=== PATIENT | male | born 1945 | race Caucasian/White ===

== ENCOUNTER 2018-07-24 16:30 | Emergency (ER) | payer OTHER ==
--- NOTE | 2018-07-24 17:01 | RAD REPORT ---
EXAM DESCRIPTION: CT - Ct Stroke Brain Wo Cont - 07/24/2018 4:52 pm CLINICAL HISTORY: NUMBNESS Headache, drowsiness, CVA COMPARISON: <Comparisons> TECHNIQUE: All CT scans are performed using dose optimization technique as appropriate and may inclu de automated exposure control or mA/KV adjustment according to patient size. FINDINGS: No intracranial hemorrhage, hydrocephalus or extra-axial fluid collection.Mild generalized brain atrophy is present with mild periventricular and deep white matter chronic microvascular ische urvashi changes.No areas of brain edema or evidence of midline shift. Chronic right maxillary sinusitis suspected. The paranasal sinuses and mastoids are otherwise clear. The calvarium is intact. IMPRESSION: No acute intracranial abnormality. The findings were discussed with Dr. Sifuentes in the ER On 07/24/2018 at 4:50 p.m. by telephone.
[2018-07-24 17:12] LABS: Absolute Lymphocytes (CBC) 1.4 K/uL (0.7-4.9); Basophils % 0.4 % (0-1.3); Eosinophils % 5.3 % (0-4.4); Hematocrit 42.9 % (39.6-49.0); Lymphocytes % 24.8 % (15.3-44.8); MPV 9.3 fL (7.6-11.3); Monocytes % 13.6 % (3.3-12.3); RBC Red Blood Cell Count 4.35 M/uL (4.33-5.43)
[2018-07-24 17:18] LABS: Protime INR 1.07
--- NOTE | 2018-07-24 17:27 | RAD REPORT ---
EXAM DESCRIPTION: RAD - Chest Single View - 07/24/2018 5:12 pm CLINICAL HISTORY: NUMBNESS Chest pain. COMPARISON: <Comparisons> FINDINGS: Portable technique limits examination quality. The lungs are grossly clear. The heart is normal in size. No displaced fractures. IMPRESSION: No acute intrathoracic process suspected.
[2018-07-24 17:53] LABS: Barbiturates NEGATIVE (NEGATIVE); Benzodiazepines NEGATIVE (NEGATIVE); Cocaine NEGATIVE (NEGATIVE); METHAMPHETAM NEGATIVE (NEGATIVE); Methadone NEGATIVE (NEGATIVE); Opiates NEGATIVE (NEGATIVE); Phencyclidine NEGATIVE (NEGATIVE); THC Cannibis NEGATIVE (NEGATIVE)
[2018-07-24 17:58] LABS: Urine Blood NEGATIVE (NEG); Urine Glucose NEGATIVE (NEG); Urine Protein NEGATIVE (NEG); Urine Specific Gravity 1.015 (1.005-1.030)
[2018-07-24 18:27] LABS: BUN Blood Urea Nitrogen 25 mg/dL (7-18); Bicarbonate 29 mmol/L (21-32); Glucose Level 94 mg/dL (74-106); Sodium Level 138 mmol/L (136-145); Troponin (Emerg Dept Use Only) < 0.02 ng/mL (0.0-0.045)
--- NOTE | 2018-07-24 19:33 | RAD REPORT ---
EXAM DESCRIPTION: CT - Head angio - 07/24/2018 7:20 pm CLINICAL HISTORY: Weakness;Slurred speech Headache, drowsiness, CVA symptomology COMPARISON: Ct Stroke Brain Wo Cont dated 07/24/2018 TECHNIQUE: CT angiography of the head was performed with MIPs. All CT scans are performed using dose optimization technique as appropriate and may include automated exposure control or mA/KV adjustment according to patient size. FINDINGS: No evidence of aneurysm is detected. No flow-limiting stenosis or vascular malformation id entified. Antegrade flow is seen in the vertebral arteries. Forward flow is seen in both vertebral arteries, wi th left-sided dominant. The visualized dural venous sinuses are patent. IMPRESSION: No significant flow abnormality is detected.
--- NOTE | 2018-07-24 19:47 | ER ---
Nurse's Notes [facility] Name: Ankit Soares Age: 73 yrs Sex: Male : 1945 Arrival Date: 07/24/2018 Time: 16:32 Bed 6 Private MD: Diagnosis: Paresthesia of skin Presentation: 07/24 16:38 Presenting complaint: Patient states: TOTAL HEAD AND BLE NUMBNESS/TINGLING SINCE 1611. bp Transition of care: patient was not received from another setting of care. Onset of symptoms was July 24, 2018 at 16:12. Risk Assessment: Do you want to hurt yourself or someone else? Patient reports no desire to harm self or others. Initial Sepsis Screen: Does the patient meet any 2 criteria? No. Patient's initial sepsis screen is negative. Does the patient have a suspected source of infection? No. Patient's initial sepsis screen is negative. Care prior to arrival: None. 16:38 Method Of Arrival: Ambulatory bp 16:38 Acuity: MAIKOL 2 bp Triage Assessment: 16:46 General: Appears in no apparent distress. Behavior is calm, cooperative, appropriate tw2 for age. Pain: Complains of pain in left leg and right leg and face. Historical: - Allergies: 16:41 No Known Allergies; bp - Home Meds: 16:41 losartan-hydrochlorothiazide 100-12.5 mg oral tab 1 tab once daily [Active]; bp pravastatin 40 mg oral tab 1 tab once daily [Active]; fenofibrate 54 mg oral tab 1 tab once daily [Active]; omeprazole 20 mg Oral cpDR 1 cap 2 times per day [Active]; Viagra 50 mg Oral tab 1 tab once daily [Active]; metoprolol succinate 50 mg oral Tb24 1 tab once daily [Active]; Ventolin HFA 90 mcg/actuation Nebulizer HFAA [Active]; ranitidine HCl 150 mg Oral cap 1 cap 2 times per day [Active]; - PMHx: 16:41 Hypertension; High Cholesterol; bp - Immunization history:: Adult Immunizations up to date. - Social history:: Smoking status: Patient/guardian denies using tobacco. - Ebola Screening: : No symptoms or risks identified at this time. Screenin:49 Abuse screen: Denies threats or abuse. Denies injuries from another. Nutritional ss screening: No deficits noted. Tuberculosis screening: Never had TB. Fall Risk No fall in past 12 months (0 pts). Secondary diagnosis (15 points) possible CVA/ dizziness. IV access (20 points). Ambulatory Aid- None/Bed Rest/Nurse Assist (0 pts). Gait- Normal/Bed Rest/Wheelchair (0 pts) Mental Status- Oriented to own ability (0 pts). 16:50 VAN Screening: Arm Drift: Patient shows no arm weakness. Patient is VAN negative. ss Visual Disturbance: No visual disturbance noted. Aphasia: No aphasia noted. Neglect: No neglect noted. Assessment: 16:49 Reassessment: In CT with patient at this time. Respirations remain even and unlabored. ss 16:52 Reassessment: back from CT, pt is awake, alert. Respirations even and unlabored. Pt ss states, "both of my legs feel weak.". 16:54 General: Appears in no apparent distress. Behavior is calm, cooperative, appropriate tw2 for age. Neuro: Level of Consciousness is awake, alert, obeys commands, Oriented to person, place, time, situation, Mold Closer Helper are weak bilaterally Moves all extremities. Speech is normal, Facial symmetry appears normal. Cardiovascular: Heart tones S1 S2 Patient's skin is warm and dry. Respiratory: Airway is patent Respiratory effort is even, unlabored, Respiratory pattern is regular, symmetrical, Breath sounds are clear bilaterally. GI: No signs and/or symptoms were reported involving the gastrointestinal system. Abdomen is round non-distended, Bowel sounds present X 4 quads. : No signs and/or symptoms were reported regarding the genitourinary system. EENT: No signs and/or symptoms were reported regarding the EENT system. Derm: No signs and/or symptoms reported regarding the dermatologic system. Skin is intact, is healthy with good turgor, Skin is dry. Musculoskeletal: Range of motion: intact in all extremities. 18:53 Reassessment: Patient appears in no apparent distress at this time. Patient and/or ch family updated on plan of care and expected duration. Pain level reassessed. Patient is alert, oriented x 3, equal unlabored respirations, skin warm/dry/pink. Patient states feeling better. 19:15 Reassessment: Patient appears in no apparent distress at this time. Patient is alert, lp1 oriented x 3, equal unlabored respirations, skin warm/dry/pink. Patient denies any numbness to head and bilateral legs Patient states feeling better. Patient states symptoms have improved. 19:15 Neuro: Moves all extremities. Full function Speech is normal, Facial symmetry appears lp1 normal, Pupils are PERRLA, Intact. Vital Signs: 16:41 BP 160 / 100; Pulse 72; Resp 18; Temp 97.3; Pulse Ox 98% ; Weight 98.43 kg; Height 5 bp ft. 10 in. (177.80 cm); 17:18 BP 159 / 104; Pulse 73; Resp 21; Pulse Ox 99% on R/A; tw2 18:53 BP 153 / 63; Pulse 72; Resp 14; Temp 97.9; Pulse Ox 99% on R/A; Pain 0/10; ch 19:15 BP 155 / 80; Pulse 72; Resp 18; Pulse Ox 97% on R/A; Pain 0/10; lp1 16:41 Body Mass Index 31.14 (98.43 kg, 177.80 cm) bp NIH Stroke Scale Scores: 16:50 NIHSS Score: 0 ss 17:08 NIHSS Score: 0 [facility] ED Course: 16:32 Patient arrived in ED. rg4 16:39 Triage completed. bp 16:41 Arm band placed on right wrist. bp 16:52 CT Stroke Brain w/o Contrast In Process Unspecified. EDMS 16:54 Erik Aiken PA is PHCP. jr8 16:54 Keith Sifuentes MD is Attending Physician. jr8 16:54 Placed in gown. Bed in low position. Side rails up X2. desk monitor on. Pulse ox on. tw2 NIBP on. 16:54 Inserted saline lock: 20 gauge in right antecubital area, using aseptic technique. ss ,using aseptic technique. inserted by Mira Garcia certified scrub tech Blood collected. 17:10 Lary Womack, RN is Primary Nurse. tw2 17:14 Stroke CXR 1 View In Process Unspecified. EDMS 18:53 No provider procedures requiring assistance completed. ch 19:20 CT completed. Patient tolerated procedure well. Patient moved to CT. Patient moved back tx from CT. 19:20 CT Head Angio In Process Unspecified. EDMS 19:47 Alex Baker MD is Referral Physician. jr8 20:04 IV discontinued, No redness/swelling at site. Pressure dressing applied. lp1 Administered Medications: No medications were administered Point of Care Testing: Blood Glucose: 16:55 Blood Glucose: 109 mg/dL; Ranges: Outcome: 19:47 Discharge ordered by . stalin 20:04 Discharged to home ambulatory, with family. lp1 20:04 Condition: good 20:04 Discharge instructions given to patient, Instructed on discharge instructions, follow up and referral plans. Demonstrated understanding of instructions, follow-up care. 20:04 Patient left the ED. lp1 NIH Stroke Scale - NIH Stroke Score Date: 07/24/2018 Time: 16:50 Total Score = 0 1a. Level of Consciousness (LOC) - 0(Alert) 1b. Level of Consciousness (LOC) (Year \\T\\ Age) - 0(Both) 1c. LOC Commands (Open \\T\\ Closes Eyes/Supervisor Type Disk Quality Control) - 0(Both) 2. Best Gaze (Lateral Gaze Paresis) - 0(Normal) 3. Visual Field Loss - 0(No visual loss) 4. Facial Palsy - 0(Normal) 5a. Left Arm: Motor (10-second hold) - 0(No drift) 5b. Right Arm: Motor (10-second hold) - 0(No drift) 6a. Left Leg: Motor (5-second hold - always test supine) - 0(No drift) 6b. Right Leg: Motor (5-second hold - always test supine) - 0(No drift) 7. Limb Ataxia (finger/nose \\T\\ heel/kimball - test with eyes open) - 0(Absent) 8. Sensory Loss (pinprick arms/legs/face) - 0(Normal) 9. Best Language: Aphasia (description/naming/reading) - 0(No aphasia) 10. Dysarthria (speech clarity - read or repeat words) - 0(Normal) 11. Extinction and Inattention (visual/tactile/auditory/spatial/personal) - 0(No abnormality) Initials: NIH Stroke Scale - NIH Stroke Score Date: 07/24/2018 Time: 17:08 Total Score = 0 1a. Level of Consciousness (LOC) - 0(Alert) 1b. Level of Consciousness (LOC) (Year \\T\\ Age) - 0(Both) 1c. LOC Commands (Open \\T\\ Closes Eyes/Supervisor Type Disk Quality Control) - 0(Both) 2. Best Gaze (Lateral Gaze Paresis) - 0(Normal) 3. Visual Field Loss - 0(No visual loss) 4. Facial Palsy - 0(Normal) 5a. Left Arm: Motor (10-second hold) - 0(No drift) 5b. Right Arm: Motor (10-second hold) - 0(No drift) 6a. Left Leg: Motor (5-second hold - always test supine) - 0(No drift) 6b. Right Leg: Motor (5-second hold - always test supine) - 0(No drift) 7. Limb Ataxia (finger/nose \\T\\ heel/kimball - test with eyes open) - 0(Absent) 8. Sensory Loss (pinprick arms/legs/face) - 0(Normal) 9. Best Language: Aphasia (description/naming/reading) - 0(No aphasia) 10. Dysarthria (speech clarity - read or repeat words) - 0(Normal) 11. Extinction and Inattention (visual/tactile/auditory/spatial/personal) - 0(No abnormality) Initials: stalin Signatures: Dispatcher [employer] EDAsmita Bashir, RN RN Demetrice Oakes RN RN ss Tami Fermin RN RN lp1 Erik Aiken PA PA jr8 Lary Womack RN RN tw2 Viviana Alcaraz4 Malik Molina Brian RN RN bp Corrections: (The following items were deleted from the chart) 16:47 16:38 Acuity: MAIKOL 3 bp bp 19:31 19:15 BP 155 / 80; Pulse 72bpm; Resp 18bpm; Pulse Ox 97% RA; lp1 lp1
--- NOTE | 2018-07-24 19:48 | EDPHYS ---
Physician Documentation [facility] Name: Ankit Soares Age: 73 yrs Sex: Male : 1945 Arrival Date: 07/24/2018 Time: 16:32 Bed 6 Private MD: ED Physician Keith Sifuentes HPI: 07/24 17:09 This 73 yrs old Male presents to ER via Ambulatory with complaints of jr8 Numbness Of Leg, Numbness Of Face, Trouble Talking. 17:09 The patient's problem is reported as paresthesias, all over. Onset: The jr8 symptoms/episode began/occurred acutely, today. Duration: This was a single incident. Context: symptoms became apparent at 16:12. occurred at home, occurred while the patient was at rest. 17:10 The symptoms are alleviated by nothing. The symptoms are aggravated by nothing. jr8 Associated signs and symptoms: The patient has no apparent associated signs or symptoms. Severity of symptoms: At their worst the symptoms were moderate in the emergency department the symptoms have resolved. Patient's baseline: Neuro: alert and fully oriented, Motor: no deficits, Ambulation: walks without assistance, Speech: normal. The patient has not experienced similar symptoms in the past. The patient has not recently seen a physician. Historical: - Allergies: 16:41 No Known Allergies; bp - Home Meds: 16:41 losartan-hydrochlorothiazide 100-12.5 mg oral tab 1 tab once daily [Active]; bp pravastatin 40 mg oral tab 1 tab once daily [Active]; fenofibrate 54 mg oral tab 1 tab once daily [Active]; omeprazole 20 mg Oral cpDR 1 cap 2 times per day [Active]; Viagra 50 mg Oral tab 1 tab once daily [Active]; metoprolol succinate 50 mg oral Tb24 1 tab once daily [Active]; Ventolin HFA 90 mcg/actuation Nebulizer HFAA [Active]; ranitidine HCl 150 mg Oral cap 1 cap 2 times per day [Active]; - PMHx: 16:41 Hypertension; High Cholesterol; bp - Immunization history:: Adult Immunizations up to date. - Social history:: Smoking status: Patient/guardian denies using tobacco. - Ebola Screening: : No symptoms or risks identified at this time. ROS: 17:09 Eyes: Negative for injury, pain, redness, and discharge, ENT: Negative for injury, jr8 pain, and discharge, Neck: Negative for injury, pain, and swelling, Cardiovascular: Negative for chest pain, palpitations, and edema, Respiratory: Negative for shortness of breath, cough, wheezing, and pleuritic chest pain, Abdomen/GI: Negative for abdominal pain, nausea, vomiting, diarrhea, and constipation, Back: Negative for injury and pain, MS/Extremity: Negative for injury and deformity, Skin: Negative for injury, rash, and discoloration. 17:09 Neuro: Positive for numbness, of the face, right leg and left leg, Negative for altered mental status, dizziness, gait disturbance, headache, loss of consciousness, syncope, near syncope. Exam: 17:08 Eyes: Pupils equal round and reactive to light, extra-ocular motions intact. Lids and jr8 lashes normal. Conjunctiva and sclera are non-icteric and not injected. Cornea within normal limits. Periorbital areas with no swelling, redness, or edema. ENT: Nares patent. No nasal discharge, no septal abnormalities noted. Tympanic membranes are normal and external auditory canals are clear. Oropharynx with no redness, swelling, or masses, exudates, or evidence of obstruction, uvula midline. Mucous membranes moist. Neck: Trachea midline, no thyromegaly or masses palpated, and no cervical lymphadenopathy. Supple, full range of motion without nuchal rigidity, or vertebral point tenderness. No Meningismus. Cardiovascular: Regular rate and rhythm with a normal S1 and S2. No gallops, murmurs, or rubs. Normal PMI, no JVD. No pulse deficits. Respiratory: Lungs have equal breath sounds bilaterally, clear to auscultation and percussion. No rales, rhonchi or wheezes noted. No increased work of breathing, no retractions or nasal flaring. Abdomen/GI: Soft, non-tender, with normal bowel sounds. No distension or tympany. No guarding or rebound. No evidence of tenderness throughout. Back: No spinal tenderness. No costovertebral tenderness. Full range of motion. Skin: Warm, dry with normal turgor. Normal color with no rashes, no lesions, and no evidence of cellulitis. MS/ Extremity: Pulses equal, no cyanosis. Neurovascular intact. Full, normal range of motion. Neuro: Awake and alert, GCS 15, oriented to person, place, time, and situation. Cranial nerves II-XII grossly intact. Motor strength 5/5 in all extremities. Sensory grossly intact. Cerebellar exam normal. Normal gait. 19:47 Radiologist reports: no acute findings [facility] Vital Signs: 16:41 BP 160 / 100; Pulse 72; Resp 18; Temp 97.3; Pulse Ox 98% ; Weight 98.43 kg; Height 5 bp ft. 10 in. (177.80 cm); 17:18 BP 159 / 104; Pulse 73; Resp 21; Pulse Ox 99% on R/A; tw2 18:53 BP 153 / 63; Pulse 72; Resp 14; Temp 97.9; Pulse Ox 99% on R/A; Pain 0/10; ch 19:15 BP 155 / 80; Pulse 72; Resp 18; Pulse Ox 97% on R/A; Pain 0/10; lp1 16:41 Body Mass Index 31.14 (98.43 kg, 177.80 cm) bp NIH Stroke Scale Scores: 16:50 NIHSS Score: 0 ss 17:08 NIHSS Score: 0 [facility] MDM: 16:54 Patient medically screened. [facility] 19:46 Data reviewed: vital signs, nurses notes, lab test result(s), EKG, radiologic studies, [facility] CT scan, plain films. Data interpreted: Pulse oximetry: on room air is 97 %. Interpretation: normal. Counseling: I had a detailed discussion with the patient and/or guardian regarding: the historical points, exam findings, and any diagnostic results supporting the discharge/admit diagnosis, lab results, radiology results, the need for outpatient follow up, a family practitioner, a neurologist, to return to the emergency department if symptoms worsen or persist or if there are any questions or concerns that arise at home. Response to treatment: the patient's symptoms have resolved after treatment. ED course: All symptoms have resolved. No acute findings on imaging or labs. Will d/c home to f/u with neurology. If worse knows to come back . 07/24 16:47 Order name: UDS bp 07/24 16:47 Order name: Troponin (emerg Dept Use Only) bp 07/24 16:47 Order name: Basic Metabolic Panel; Complete Time: 18:49 bp 07/24 16:47 Order name: CBC with Diff; Complete Time: 17:31 bp 07/24 16:47 Order name: Protime (+inr); Complete Time: 17:31 bp 07/24 16:47 Order name: Ptt, Activated; Complete Time: 17:31 bp 07/24 16:47 Order name: CT Stroke Brain w/o Contrast; Complete Time: 17:10 bp 07/24 16:47 Order name: Stroke CXR 1 View; Complete Time: 17:31 bp 07/24 16:47 Order name: EKG; Complete Time: 16:50 bp 07/24 16:47 Order name: Accucheck; Complete Time: 17:15 bp 07/24 16:49 Order name: Urine Drug Screen; Complete Time: 18:03 EDMS 07/24 16:49 Order name: Troponin (Emerg Dept Use Only); Complete Time: 18:49 EDMS 07/24 17:44 Order name: Urine Dipstick--Ancillary (enter results); Complete Time: 18:03 bd 07/24 18:49 Order name: CT Head Angio; Complete Time: 19:46 jr8 07/24 16:47 Order name: Cardiac monitoring; Complete Time: 17:15 bp 07/24 16:47 Order name: EKG - Nurse/Tech; Complete Time: 17:16 bp 07/24 16:47 Order name: IV Saline Lock; Complete Time: 17:12 bp 07/24 16:47 Order name: Labs collected and sent; Complete Time: 17:12 bp 07/24 16:47 Order name: NPO; Complete Time: 17:13 bp 07/24 16:47 Order name: O2 Per Protocol; Complete Time: 17:12 bp 07/24 16:47 Order name: O2 Sat Monitoring; Complete Time: 17:12 bp 07/24 16:47 Order name: Stroke Swallow Screen; Complete Time: 17:12 bp Administered Medications: No medications were administered Point of Care Testing: Blood Glucose: 16:55 Blood Glucose: 109 mg/dL; ss Ranges: Critical Glucose Levels:Adult <50 mg/dl or >400 mg/dl <40 mg/dl or >180 mg/dl Disposition: 07/24/18 19:47 Discharged to Home. Impression: Paresthesia of skin. - Condition is Stable. - Discharge Instructions: Paresthesia. - Medication Reconciliation Form, Thank You Letter, Antibiotic Education, Prescription Opioid Use form. - Follow up: Alex Baker MD; When: 5 - 6 days; Reason: Recheck today's complaints, Continuance of care, Re-evaluation by your physician. - Problem is new. - Symptoms have improved. NIH Stroke Scale - NIH Stroke Score Date: 07/24/2018 Time: 16:50 Total Score = 0 1a. Level of Consciousness (LOC) - 0(Alert) 1b. Level of Consciousness (LOC) (Year \T\ Age) - 0(Both) 1c. LOC Commands (Open \T\ Closes Eyes/Watermelon Inspector) - 0(Both) 2. Best Gaze (Lateral Gaze Paresis) - 0(Normal) 3. Visual Field Loss - 0(No visual loss) 4. Facial Palsy - 0(Normal) 5a. Left Arm: Motor (10-second hold) - 0(No drift) 5b. Right Arm: Motor (10-second hold) - 0(No drift) 6a. Left Leg: Motor (5-second hold - always test supine) - 0(No drift) 6b. Right Leg: Motor (5-second hold - always test supine) - 0(No drift) 7. Limb Ataxia (finger/nose \T\ heel/kmiball - test with eyes open) - 0(Absent) 8. Sensory Loss (pinprick arms/legs/face) - 0(Normal) 9. Best Language: Aphasia (description/naming/reading) - 0(No aphasia) 10. Dysarthria (speech clarity - read or repeat words) - 0(Normal) 11. Extinction and Inattention (visual/tactile/auditory/spatial/personal) - 0(No abnormality) Initials: NIH Stroke Scale - NIH Stroke Score Date: 07/24/2018 Time: 17:08 Total Score = 0 1a. Level of Consciousness (LOC) - 0(Alert) 1b. Level of Consciousness (LOC) (Year \T\ Age) - 0(Both) 1c. LOC Commands (Open \T\ Closes Eyes/Watermelon Inspector) - 0(Both) 2. Best Gaze (Lateral Gaze Paresis) - 0(Normal) 3. Visual Field Loss - 0(No visual loss) 4. Facial Palsy - 0(Normal) 5a. Left Arm: Motor (10-second hold) - 0(No drift) 5b. Right Arm: Motor (10-second hold) - 0(No drift) 6a. Left Leg: Motor (5-second hold - always test supine) - 0(No drift) 6b. Right Leg: Motor (5-second hold - always test supine) - 0(No drift) 7. Limb Ataxia (finger/nose \T\ heel/kimball - test with eyes open) - 0(Absent) 8. Sensory Loss (pinprick arms/legs/face) - 0(Normal) 9. Best Language: Aphasia (description/naming/reading) - 0(No aphasia) 10. Dysarthria (speech clarity - read or repeat words) - 0(Normal) 11. Extinction and Inattention (visual/tactile/auditory/spatial/personal) - 0(No abnormality) Initials: jr8 Signatures: Dispatcher [employer] EDMS Tami Fermin, TAYLOR RN lp1 Erik Aiken PA PA jr8 Aakash Maya RN RN bp Corrections: (The following items were deleted from the chart) 17:11 17:09 Context: symptoms became apparent occurred at home, occurred while the jr8 patient was at rest, 8 20:04 19:47 07/24/2018 19:47 Discharged to Home. Impression: Paresthesia of skin. lp1 Condition is Stable. Forms are Medication Reconciliation Form, Thank You Letter, Antibiotic Education, Prescription Opioid Use. Follow up: Alex Baker; When: 5 - 6 days; Reason: Recheck today's complaints, Continuance of care, Re-evaluation by your physician. Problem is new. Symptoms have improved. jr8
[2018-07-24 21:00] VITALS: TEMP 97.9
[2018-07-24 21:01] VITALS: BP 155/80; O2SAT 97
--- NOTE | 2018-07-24 22:21 | EKG ---
Test Date: 2018-07-24 Test Time: 17:04:40 Optimization Engineer: DONNA MEASUREMENT RESULTS: Intervals: Rate: 71 NH: 186 QRSD: 94 QT: 404 QTc: 439 [place]: P: 40 NH: 186 QRS: 1 T: 19 INTERPRETIVE STATEMENTS: Normal sinus rhythm Normal ECG Compared to ECG 02/23/2005 14:47:20 No significant changes Electronically Signed On 07-24-18 22:20:20 CDT by Bharat Goodwin
== END 2018-07-24 20:04 | disposition home or self-care (01) ==
LOC: ER 16:30
DX: R20.2 Paresthesia of skin (principal); I10 Essential (primary) hypertension; E78.00 Pure hypercholesterolemia, unspecified
CPT/HCPCS: 93005; 85025; 80048; 36415; 85610; 82962; 80307 ×8; 85730; 81003; 84484; 70496; 70450; 71045; 99285; Q9967

== ENCOUNTER 2020-03-12 06:56 | Day surgery (SDC) | payer OTHER ==
[2020-03-10 10:24] LABS: Absolute Lymphocytes (CBC) 1.2 K/uL (0.7-4.9); Basophils % 1.4 % (0-1.3); Lymphocytes % 24.1 % (15.3-44.8); MPV 8.7 fL (7.6-11.3); RBC Red Blood Cell Count 4.04 M/uL (4.33-5.43)
--- NOTE | 2020-03-10 11:23 | RAD REPORT ---
EXAM DESCRIPTION: Ester Quintero (2 Views)03/10/2020 11:05 am CLINICAL HISTORY: Preop/hypertension COMPARISON: 2019 FINDINGS: The lungs appear clear of acute infiltrate. The heart is normal size IMPRESSION: No acute abnormalities displayed
[2020-03-12] MEDS ORDERED: Ringers Lactate 1,000 ML IV ONE (07:28)
[2020-03-12] MEDS ORDERED: FENTANYL CITR 100 MCG/2 ML ONE (07:51)
[2020-03-12] MEDS ORDERED: propofoL 200 MG/20 ML VIAL IV ONE (07:51)
[2020-03-12] MEDS ORDERED: KETOROLAC 30 MG/ML INJ ONE (07:52)
[2020-03-12] MEDS ORDERED: LIDOCAINE 2% MPF 5 ML VIAL ONE (07:52)
[2020-03-12] MEDS ORDERED: ROCURONIUM 50 MG/5 ML VIAL IV ONE (07:52)
[2020-03-12] MEDS ORDERED: ONDANSETRON 4 MG/2 ML VIAL ONE (07:53)
[2020-03-12] MEDS ORDERED: dexAMETHasone 4 MG/ML VIAL ONE (07:54)
[2020-03-12] MEDS: CEFAZOLIN/SWI 1gm 1 GM/10 ML SYR ONE ×2 (08:18→08:29)
[2020-03-12] MEDS: Ringers Lactate 1,000 ML IV ONE ×2 (09:02→09:29)
[2020-03-12] MEDS ORDERED: EPHEDRINE SULF 50 MG/ML VIAL ONE (09:14)
[2020-03-12] MEDS ORDERED: Mastisol Adhesive Liq ONE (10:39)
--- NOTE | 2020-03-12 11:27 | OP ---
Date of Procedure: 03/12/2020 Surgeon: Rodrigo Cortez MD Polygraph Technician: JULIETH Cottrell. Preoperative Diagnoses: Umbilical hernia and incarcerated left inguinal hernia. Postoperative Diagnoses: Umbilical hernia and incarcerated left inguinal hernia. Procedure: Laparoscopic repair of umbilical hernia and repair of incarcerated left inguinal hernia. Estimated Blood Loss: Minimal. Specimen: Hernia sac and cord lipoma. Findings: As above. Anesthesia: General. Complications: None. Disposition: The patient tolerated the procedure in stable condition and taken to Recovery in good g eneral condition. Procedure In Detail: The patient was brought to the OR and placed in supine position. General anest hesia begun. The patient was prepped and draped in the usual sterile fashion. Marcaine 0.5% was inf iltrated locally. 15-blade was used to make a 1 cm left upper quadrant incision. Subcutaneous tissu e was divided. Fascia identified and divided. #1 Vicryl stay suture was placed. Peritoneal cavity was entered with sharp and blunt dissection. 12 mm trocar was placed into the peritoneal cavity. Pn eumoperitoneum was established. There was an incarcerated omentum in the umbilical hernia. A 5 mm t rocar was placed in the left lower quadrant and LigaSure was used to divide the omental adhesions and the hernia sac was freed and then a 3 cm incision was made in the supraumbilical region over the her kayla site. Subcutaneous tissues were divided. Excess skin was excised and then hernia sac was excise d as well down to the fascial edges and then #1 Vicryl suture was used to close the fascial defect an d then pneumoperitoneum was re-established and subsequently a 4-inch Bard mesh was placed and balloon was deployed. AbsorbaTack was used to secure the mesh to the peritoneal surface. Complete coverage of the hernia site with borders was accomplished. Then, there was no evidence of bleeding or bile l eakage appreciated. Bowel injury appreciated. Subsequently, all trocars were removed under direct v ision. Stay suture was tied to each other across the fascial defect. Subcutaneous wound was irrigat ed and bleeding was controlled with electrocautery. 2-0 chromic was used to approximate the subcutan eous tissue and closed the skin. Then, a field block utilizing Marcaine was performed in the left gr oin and a 4 cm oblique incision was made between the pubic tubercle and the anterior iliac superior s pine. Subcutaneous tissue was divided. Vito fascia was identified and divided. Aponeurosis was a ttenuated. Ilioinguinal nerve was identified and retracted out of the field of dissection. Cord was mobilized at the pubic tubercle and skeletonized. A large direct defect was present with preperiton eal fat and a large cord lipoma was present and the cord lipoma was excised with 2-0 Prolene suture l igature free and tie and sent to Pathology and direct hernia was reduced into the peritoneal space an d then the floor was reconstructed utilizing 2-0 Prolene bringing the conjoint tendon to the shelving edge and then Marlex mesh plug was placed in the internal ring and secured with VersaTack stapler. Onlay mesh was placed on the inguinal floor, secured medially to the pubic tubercle, superiorly to th e conjoined tendon, and laterally to each other inferior to the shelving edge, and then cord structur es and ilioinguinal nerve were placed back in anatomic location. 3-0 chromic was used to reapproxima te Vito's fascia and staple was used to close the skin. Sterile dressing was applied. The patient was awakened and taken to Recovery in good general condition. Discharge Note: The patient will go to Day Surgery and home when stable. Disposition: Home. Condition: Stable. Discharge Instructions: Resume home medications and diet. Activity as tolerated. No heavy lifting. Remove outer dressing in 2 days. Shower. Keep Steri-Strips on at all times. Tylenol No. 3 one ta blet p.o. q.4 p.r.n. pain. Abdominal binder as ordered, scrotal support, ice pack. Follow up in my offic e in a week and call for appointment. /MODL Voice ID: [id number] Report ID: [id number]
[2020-03-12] MEDS ORDERED: HYDROCODONE/APAP 7.5/325 MG TAB ONE (11:46)
[2020-03-12 12:34] VITALS: BP 126/75; TEMP 96.5; O2SAT 96
== END 2020-03-12 12:15 | disposition home health service (06) ==
LOC: OR 06:56
PROVIDERS: ATTEND Surgery
PROC: 0WQF4ZZ Repair Abdominal Wall, Percutaneous Endoscopic Approach (ICD-10-PCS; principal; 2020-03-12 08:30)
PROC: 0YU64JZ Supplement Left Inguinal Region with Synthetic Substitute, Percutaneous Endoscopic Approach (ICD-10-PCS; 2020-03-12 08:30)
DX: K40.30 Unilateral inguinal hernia, with obstruction, without gangrene, not specified as recurrent (principal); K42.9 Umbilical hernia without obstruction or gangrene; Z20.822 Contact with and (suspected) exposure to COVID-19
CPT/HCPCS: 93005; 85025; 80048; 36415; 88302; 71046; 49652; 49650; U0002; J2704; J1100; J3010; J0690; J7120 ×2; J2405; C1781